=== PATIENT | female | born 1975 | race Caucasian/White ===

== ENCOUNTER → 2024-03-23 09:04 | Outpatient (REF) | payer OTHER, SELFPAY | LOC: WDC 09:04 | PROVIDERS: ATTENDING PHYSICIAN Obstetrics & Gynecology; FAMILY PHYSICIAN Physician Assistant Medical | DX: N63.10 Unspecified lump in the right breast, unspecified quadrant (principal); N63.11 Unspecified lump in the right breast, upper outer quadrant | CPT/HCPCS: 76642; 77062; 77066 ==